=== PATIENT | female | born 1935 | race Caucasian/White ===

== ENCOUNTER 2018-03-21 14:26 | Day surgery (SDC) | payer MEDICARE, OTHER ==
[~2018-03-21] VITALS: Ht 170.2 cm; Wt 78.6 kg
[~2018-03-21 14:26] MED LIST: ACTINEL LIQUID474 ML; Dyazide 37.5-21 EACH; FISH OIL 1,0001 EAC1; ROSU10TA; SYSTANE GEL EYE10 ML
--- NOTE | 2018-03-21 16:20 | NUR ---
03/21/18 1620 Maia Arboleda AT 1600 PT WAS DC'D IN STABLE CONDITION TO CARE OF Radha SKAGGS. COPIES OF ALL INSTRUCTIONS WERE GIVEN. EYE CARE KIT GIVEN AND PT HAS F/U APPT IN AM. TOLERATED PO FLUIDS WELL BUT REFUSED A SNACK. AMBU TO CAR W/SBA X1 JOE WELL
== END 2018-03-21 16:00 | disposition home or self-care (01) ==
LOC: ORSCSDS 14:26
PROVIDERS: Ophthalmology
PROC: 08RK3JZ Replacement of Left Lens with Synthetic Substitute, Percutaneous Approach (ICD-10-PCS; principal; 2018-03-21 16:00)
DX: H25.12 Age-related nuclear cataract, left eye (principal); I10 Essential (primary) hypertension; R01.1 Cardiac murmur, unspecified; Z79.899 Other long term (current) drug therapy
CPT/HCPCS: J2001; J2250; J3010; V2632

== ENCOUNTER → 2021-02-22 | Outpatient (CLI) | payer MEDICARE, OTHER ==
[2021-02-22 10:26] LABS: Source, Urine Clean Catch
[2021-02-22 10:59] LABS: Appearance, Urine Clear (Clear); Bilirubin, Urine Neg (Neg); Blood, Urine Neg (Neg); Color, Urine Yellow (P-Yellow); Glucose Qualitative, Urine Neg (Neg); Ketones, Urine Neg (Neg); Leukocyte Esterase, Urine Neg (Neg); Nitrite, Urine Neg (Neg); Protein, Urine Neg (Neg); Specific Gravity, Urine 1.015 (1.003-1.022); Urobilinogen, Urine NORM (Normal)
== END | disposition home or self-care (01) ==
LOC: LAB SHORT 06:30
PROVIDERS: Internal Medicine
DX: N39.0 Urinary tract infection, site not specified (principal)
CPT/HCPCS: 81003

== ENCOUNTER 2021-08-21 09:37 | Inpatient (IN) | payer MEDICARE, OTHER ==
[~2021-08-21] VITALS: Ht 170.2 cm; Wt 64.7 kg
[~2021-08-21 09:37] MED LIST changes: -ROSU10TA; +ROSU10TA PO; +SYSTANE BALANCE10 ML BOTHEYES; -SYSTANE GEL EYE10 ML
[2021-08-21] MEDS ORDERED: ASPI81CH PO (10:04)
[2021-08-21] MEDS ORDERED: VITAMIN D33000 UNIT PO (10:04)
[2021-08-21] MEDS ORDERED: C COMPLEX1000 M1 PO (10:05)
[2021-08-21 10:24] LABS: BASOPHILS ABSOLUTE AUTO 0.04 K/mm3 (0.00-0.23); BASOPHILS PERCENT AUTO 1 % (0-2); EOSINOPHILS PERCENT AUTO 2 % (0-6); Hematocrit 39.4 % (33.0-51.0); Hemoglobin 12.8 g/dL (11.5-16.0); IMMATURE GRAN ABSOLUTE AUTO 0.03 K/mm3 (0.00-0.10); IMMATURE GRAN PERCENT AUTO 1 % (0-1); LYMPHOCYTES ABSOLUTE AUTO 1.05 K/mm3 (0.84-5.20); LYMPHOCYTES PERCENT AUTO 18 % (21-46); MONOCYTES ABSOLUTE AUTO 0.44 K/mm3 (0.16-1.47); MONOCYTES PERCENT AUTO 7 % (4-13); Mean Corpuscular HGB 29.1 pg (26.0-34.0); Mean Corpuscular HGB Conc 32.5 g/dL (31.5-36.5); Mean Corpuscular Volume 90 fL (80-100); Mean Platelet Volume 8.8 fL (9.1-12.4); NEUTROPHILS ABSOLUTE AUTO 4.33 K/mm3 (1.96-9.15); NEUTROPHILS PERCENT AUTO 72 % (41-73); Platelet Count 284 K/mm3 (150-400); RDW Coefficient Variation 14.5 % (11.7-14.2); RDW Standard Deviation 47.6 fL (35.1-46.3); White Blood Cell Count 5.99 K/mm3 (4.00-11.30)
[2021-08-21 10:45] LABS: Bun/Creatinine Ratio 28.6 (12.0-20.0); Calcium, Blood 9.9 mg/dL (8.5-10.1); Creatinine, Blood 1.19 mg/dL (0.40-1.00); Magnesium, Blood 2.4 mg/dL (1.6-2.4); Potassium, Blood 3.4 mmol/L (3.5-5.5); Thyroid Stimulating Hormone 1.73 uIU/mL (0.360-4.800)
[2021-08-21 13:07] LABS: International Normalized Ratio 1.02; Prothrombin Time Results 10.7 Sec (9.7-11.5)
--- NOTE | 2021-08-21 17:52 | NUR ---
SHIFT SUMMARY: PATIENT ADMIT TO PCU AT 1520. ABLE TO STAND AND TRANSFER FROM [facility] TO BED WITH ONE PERSON ASSIST. DENIES NUMBNESS/TINGLING. PERRLA, WEARING GLASSESS. BILATERAL INVESTMENT STRATEGIST STRENGTH. DENIES DIZZINESS WHEN STANDING. ON ROOM AIR SATING HIGH 90'S. TELE SHOWING SINUS RHYTHM WITH HR 60-70'S. UP TO BSC X1 WITH 2 PERSON ASSIST FOR SAFETY DUE TO RECENT GROUND LEVEL FALL AT HOME. SON AND UPDATED. DENIES ABDOMINAL PAIN/NAUSEA. VOIDING WNL. EATING DINNER AT THIS TIME. COMPLAINS OF 8-9/10 NECK PAIN, DENIES NEEDS FOR PAIN MEDICATIONS. ICE APPLIED AND PATIENT STATES IT IS FEELING MUCH BETTER. RIGHT SIDE OF FACE FOREHEAD, RIGHT EYE AND BELOW RIGHT EYE RBUISING, PURPLE/BLUE. SWELLING TO RIGHT EYE. SMALL LACERATION BELOW RIGHT EYE. SEE PICTURES IN CHART. PATIENT DENIES PAIN OTHER THAN NECK. SITTING UP RIGHT IN BED. ORIENTED TO ROOM/UNIT/CALL LIGHT. BED ALARM ON FOR SAFETY DUE TO RECENT FALL. PATIENT CALLING FOR NEEDS. VITAL SIGNS STABLE. WILL CONTINUE TO MONITOR AND REPORT OFF TO ONCOMING RN.
[2021-08-22 03:42] LABS: BASOPHILS ABSOLUTE AUTO 0.03 K/mm3 (0.00-0.23); BASOPHILS PERCENT AUTO 0 % (0-2); EOSINOPHILS ABSOLUTE AUTO 0.08 K/mm3 (0.00-0.68); EOSINOPHILS PERCENT AUTO 1 % (0-6); Hematocrit 38.1 % (33.0-51.0); Hemoglobin 12.1 g/dL (11.5-16.0); IMMATURE GRAN ABSOLUTE AUTO 0.02 K/mm3 (0.00-0.10); IMMATURE GRAN PERCENT AUTO 0 % (0-1); LYMPHOCYTES ABSOLUTE AUTO 0.97 K/mm3 (0.84-5.20); LYMPHOCYTES PERCENT AUTO 13 % (21-46); MONOCYTES PERCENT AUTO 8 % (4-13); Mean Corpuscular HGB 28.5 pg (26.0-34.0); Mean Corpuscular HGB Conc 31.8 g/dL (31.5-36.5); Mean Corpuscular Volume 90 fL (80-100); Mean Platelet Volume 8.8 fL (9.1-12.4); NEUTROPHILS ABSOLUTE AUTO 5.74 K/mm3 (1.96-9.15); NEUTROPHILS PERCENT AUTO 77 % (41-73); Platelet Count 245 K/mm3 (150-400); RDW Coefficient Variation 14.4 % (11.7-14.2); RDW Standard Deviation 47.3 fL (35.1-46.3); Red Blood Cell Count 4.25 M/mm3 (3.80-5.20); White Blood Cell Count 7.44 K/mm3 (4.00-11.30)
[2021-08-22 04:10] LABS: LDL/HDL RATIO 0.6; Magnesium, Blood 2.1 mg/dL (1.6-2.4); Very Low Density Lipoprot Chol 25 mg/dL (6-32)
[2021-08-22 04:11] LABS: Albumin, Blood 3.2 g/dL (3.4-5.0); Anion Gap 7 mmol/L (6-16); Blood Urea Nitrogen 26 mg/dL (8-24); Bun/Creatinine Ratio 29.3 (12.0-20.0); CHOL/HDL RATIO 2.1; CO2, Blood 26 mmol/L (21-32); Calcium, Blood 9.3 mg/dL (8.5-10.1); Chloride, Blood 108 mmol/L (98-108); Cholesterol 103 mg/dL (50-200); Creatinine, Blood 0.89 mg/dL (0.40-1.00); Glomerular Filtration Rate 64 (60-); Glucose, Blood 116 mg/dL (70-99); HDL Cholesterol 48 mg/dL (>39); Low Density Lipoprotein Chol 30 mg/dL (0-110); Phosphorus, Blood 2.9 mg/dL (2.5-4.9); Potassium, Blood 3.5 mmol/L (3.5-5.5); Sodium, Blood 141 mmol/L (136-145); Triglycerides 127 mg/dL (30-160)
--- NOTE | 2021-08-22 05:58 | NUR ---
SHIFT SUMMARY Assumed care of pt at 1900. SBA. Reports 9/10 pain in neck from GLF, refuses pain medication and prefers ice pack. SR 70's on telemetry. Per telecommunications field engineer, patient has brief episodes of sinus tach into 130's, then quickly falls back into 70's. Denies CP/pressure. Heparin infusing per emar. Bruising on face from the fall - see chart. VSS. No acute events this shift. Will report to dayshift RN.
--- NOTE | 2021-08-22 06:49 | NUR ---
Around 0620 patient went into SVT up into the 180's for about 10 seconds then back to the 70's. At the time the patient was sitting on the side of the bed asymptomatic.
--- NOTE | 2021-08-22 13:00 | NUR ---
Spiritual care visit conducted. Pt tells me about the events that led to her hospitalization and the plan of care moving forward. Our visit centers around pt's ability to cope with her current many stressors. We discuss family unit complications, spouse's failing health and pt's worries about her own medical issues. We then discuss her coping skills and resources. We discuss her linda and the strength that she gains from her prayers and the reading of the Bible. I normalize pt's experience, reinforce helpful attitudes and practices and provide therapeutic listening, gentle direct selling counselor and prayer. Pt responds well and shows signs of increased peace.
--- NOTE | 2021-08-22 16:47 | NUR ---
SHIFT SUMMARY: ASSUMED CARE OF PT APPROX 0700. NO ACUTE CHANGES T/OUT SHIFT. PT A&Ox4, COOPERATIVE W/CARE, USES CALL LIGHT APPROPRIATELY. PT DENIES SOB, O2 SATS MAINTAINED >93% RA. PT DENIES CHEST PAIN, NO SYNCOPAL EPISODES THIS SHIFT, DR ACHARYA CONSULTED, HEPARIN INFUSION DC'd, AMIODARONE PO ADMINISTERED PER ORDERS. PT C/O NECK PAIN, TREATED W/ICE PACKS, AND PT DOES TAKE TYLENOL x1. SWELLING AND BRUISING CONTINUES TO EYES/FACE. PT AMBULATES TO/FROM RESTROOM W/SBA. AT THIS TIME, PT RESTING QUIETLY IN BED WITH CALL LIGHT IN REACH. WILL CONTINUE TO MONITOR AND TREAT ACCORDINGLY UNTIL CHANGE OF SHIFT.
--- NOTE | 2021-08-23 06:10 | NUR ---
SHIFT SUMMARY Patient slept most of the night. SR with PAC's on tele, no MAT events. Neck pain treated with tylenol with good effect. VSS. No acute events. Will report to dayshift NIA.
--- NOTE | 2021-08-23 07:16 | NUR ---
NURSING PCU DAYSHIFT: Assumed care of pt at approx 0700. A/O, very pleasant, cooperative w/care. Skin is fragile, b/l orbital bruising R>L, scattered facial brusing r/t GLF at home. Able to reposition and xfer to BSC independently though SBA used for ambulation. C/O 7/10 neck pain/stiffness, treating w/positioning, cool packs, and tylenol as ordered. Tele in place, NSR, no c/o CP/pressure, SBP 120 prior to a.m. meds, no noted edema. L/S cta t/o, O2 sat 95% on RA, denies dyspnea, no noted cough. Abd SNT, BT+, voiding w/o difficulty per pt. PIV x2, s/l. Pt denies any current needs or questions regarding plan of care. Today is day two of amiodarone as ordered by magazine editor, no rhythm changes reported t/o NOC. Awaiting rounding from PMD and cardio, call light in reach, cont to monitor for any changes.
[2021-08-23] MEDS ORDERED: Amiodarone HCl200 MG PO ×2 (13:43→13:44)
--- NOTE | 2021-08-23 14:42 | NUR ---
NURSING PCU DISCHARGE SUMMARY: No significant changes noted t/o the a.m. Seen by PMD, discharge home d/o received. Pt verbalized understanding of all written and verbal discharge instructions. Rx's sent to [facility] per pt request. PIV's dc'd w/caths intact, pt escorted from unit via w/c accompanied by PCT @ approx 1420, no s/s of acute distress at that time.
== END 2021-08-23 14:20 | disposition home or self-care (01) | DRG 309 ==
LOC: ER 09:37 → PCU 15:44
PROVIDERS: Student in an Organized Health Care Education/Training Program; ADMIT Internal Medicine
DX: I47.1 Supraventricular tachycardia (principal); N17.9 Acute kidney failure, unspecified; E87.6 Hypokalemia; I10 Essential (primary) hypertension; M54.2 Cervicalgia; E78.5 Hyperlipidemia, unspecified; I35.0 Nonrheumatic aortic (valve) stenosis; Z79.899 Other long term (current) drug therapy; Z88.0 Allergy status to penicillin; Z79.82 Long term (current) use of aspirin; Z66 Do not resuscitate; R09.89 Other specified symptoms and signs involving the circulatory and respiratory systems; Z90.49 Acquired absence of other specified parts of digestive tract; Z90.710 Acquired absence of both cervix and uterus; R55 Syncope and collapse
CPT/HCPCS: 12011; 36415; 70450; 71045; 71260; 72125; 73100; 80048; 80061; 80069; 82947; 83735; 83880; 84100; 84443; 84484; 85025; 85379; 85520; 85610; 85730; 93005; 93010; 93880; 99285-25; A9270; J1644; J1650; J7030; J7040; Q9967

== ENCOUNTER 2021-12-12 11:25 | Emergency (ER) | payer MEDICARE, OTHER ==
[~2021-12-12] VITALS: Ht 170.2 cm; Wt 74.8 kg
[~2021-12-12 11:25] MED LIST changes: +ASPI81CH PO; +Amiodarone HCl200 MG PO; +C COMPLEX1000 M1 PO; +OMEP20ER PO; +VITAMIN D33000 UNIT PO
[2021-12-12 11:59] LABS: BASOPHILS ABSOLUTE AUTO 0.04 K/mm3 (0.00-0.23); BASOPHILS PERCENT AUTO 1 % (0-2); EOSINOPHILS ABSOLUTE AUTO 0.03 K/mm3 (0.00-0.68); EOSINOPHILS PERCENT AUTO 0 % (0-6); Hematocrit 29.9 % (33.0-51.0); Hemoglobin 9.4 g/dL (11.5-16.0); IMMATURE GRAN ABSOLUTE AUTO 0.01 K/mm3 (0.00-0.10); IMMATURE GRAN PERCENT AUTO 0 % (0-1); LYMPHOCYTES PERCENT AUTO 11 % (21-46); MONOCYTES ABSOLUTE AUTO 0.44 K/mm3 (0.16-1.47); MONOCYTES PERCENT AUTO 6 % (4-13); Mean Corpuscular HGB 26.9 pg (26.0-34.0); Mean Corpuscular HGB Conc 31.4 g/dL (31.5-36.5); Mean Corpuscular Volume 86 fL (80-100); Mean Platelet Volume 8.9 fL (9.1-12.4); NEUTROPHILS ABSOLUTE AUTO 6.08 K/mm3 (1.96-9.15); NEUTROPHILS PERCENT AUTO 82 % (41-73); Platelet Count 471 K/mm3 (150-400); RDW Coefficient Variation 14.4 % (11.7-14.2); RDW Standard Deviation 44.8 fL (35.1-46.3); Red Blood Cell Count 3.49 M/mm3 (3.80-5.20)
[2021-12-12 12:16] LABS: Albumin, Blood 3.2 g/dL (3.4-5.0); Albumin/Globulin Ratio 0.9 (0.8-1.8); Bilirubin, Total 0.3 mg/dL (0.1-1.0); Bun/Creatinine Ratio 31.4 (12.0-20.0); Calcium, Blood 9.1 mg/dL (8.5-10.1); Creatinine, Blood 1.21 mg/dL (0.40-1.00); Globulin, Blood 3.4 g/dL (2.2-4.0); Potassium, Blood 3.6 mmol/L (3.5-5.5); Total Protein, Blood 6.6 g/dL (6.4-8.2)
[2021-12-12 16:39] LABS: Source, Urine Fem Cath
[2021-12-12 16:44] LABS: Appearance, Urine Hazy (Clear); Bilirubin, Urine Neg (Neg); Blood, Urine Neg (Neg); Color, Urine Yellow (P-Yellow); Glucose Qualitative, Urine Neg (Neg); Ketones, Urine Neg (Neg); Leukocyte Esterase, Urine Neg (Neg); Nitrite, Urine Neg (Neg); Protein, Urine 1+ (Neg); Urobilinogen, Urine NORM (Normal)
[2021-12-12 17:00] LABS: Amorphous Mod (0-Heavy); Bacteria Mod /hpf; Red Blood Cells, Urine 0-2 /hpf (0-2); Renal Epithelial Rare /hpf (0-Rare); Squamous Epithelial Cells Rare /hpf (Few); White Blood Cells, Urine 0-2 /hpf (0-5)
[2021-12-12 17:34] LABS: Magnesium, Blood 2.3 mg/dL (1.6-2.4)
== END 2021-12-12 19:43 | disposition home or self-care (01) ==
LOC: ER 11:25
PROVIDERS: Emergency Medicine; Physician Assistant; Student in an Organized Health Care Education/Training Program
DX: R53.1 Weakness (principal); I10 Essential (primary) hypertension; R94.31 Abnormal electrocardiogram [ECG] [EKG]; Z79.899 Other long term (current) drug therapy; Z79.82 Long term (current) use of aspirin; Z88.0 Allergy status to penicillin
CPT/HCPCS: 80053; 81001; 83735; 83880; 84100; 84484; 85025; 86850; 86900; 86901; J7030; P9612

== ENCOUNTER 2021-12-15 11:25 | Inpatient (IN) | payer MEDICARE, OTHER ==
[~2021-12-15] VITALS: Ht 170.2 cm; Wt 57.8 kg
[2021-12-15 11:47] LABS: BASOPHILS ABSOLUTE AUTO 0.03 K/mm3 (0.00-0.23); BASOPHILS PERCENT AUTO 0 % (0-2); EOSINOPHILS ABSOLUTE AUTO 0.02 K/mm3 (0.00-0.68); EOSINOPHILS PERCENT AUTO 0 % (0-6); Hematocrit 30.4 % (33.0-51.0); Hemoglobin 9.5 g/dL (11.5-16.0); IMMATURE GRAN ABSOLUTE AUTO 0.03 K/mm3 (0.00-0.10); IMMATURE GRAN PERCENT AUTO 0 % (0-1); LYMPHOCYTES PERCENT AUTO 8 % (21-46); MONOCYTES ABSOLUTE AUTO 0.36 K/mm3 (0.16-1.47); MONOCYTES PERCENT AUTO 4 % (4-13); Mean Corpuscular HGB 26.8 pg (26.0-34.0); Mean Corpuscular HGB Conc 31.3 g/dL (31.5-36.5); Mean Corpuscular Volume 86 fL (80-100); Mean Platelet Volume 8.9 fL (9.1-12.4); NEUTROPHILS ABSOLUTE AUTO 7.26 K/mm3 (1.96-9.15); NEUTROPHILS PERCENT AUTO 86 % (41-73); Platelet Count 412 K/mm3 (150-400); RDW Coefficient Variation 14.3 % (11.7-14.2); RDW Standard Deviation 45.3 fL (35.1-46.3); Red Blood Cell Count 3.54 M/mm3 (3.80-5.20)
[2021-12-15 12:13] LABS: Albumin, Blood 3.2 g/dL (3.4-5.0); Bilirubin, Total 0.3 mg/dL (0.1-1.0); Bun/Creatinine Ratio 24.1 (12.0-20.0); Calcium, Blood 9.1 mg/dL (8.5-10.1); Creatinine, Blood 1.58 mg/dL (0.40-1.00); Globulin, Blood 3.3 g/dL (2.2-4.0); Potassium, Blood 3.3 mmol/L (3.5-5.5); Total Protein, Blood 6.5 g/dL (6.4-8.2)
[2021-12-15 17:06] LABS: Percent Saturation 5.7 % (15.0-50.0)
[2021-12-15] MEDS ORDERED: LOSA50 PO (17:38)
--- NOTE | 2021-12-15 17:48 | NUR ---
RN NOTE PT ADMITTED FROM ER AT 1605HRS. SHE WAS ABLE TO STAND TO TRANSFER, BUT FEELS WEAK, SO NEEDS 1-2 PERSON ASSISTANCE. AWAKE, ORIENTATED TO SELF, PLACE, FAMILY, DATE. POOR SHORT TERM MEMORY PER PT ADN FAMILY AT BEDSIDE. BALAJI LIVES WITH HER DAUGHTER AND DOES REQUIRE SOME HELP AT HOME. SKIN INTACT. SKIN 2ND NURSE CHECK WITH [place]EL [place] RN. EXTREMITIES COLD, WARMED WITH BLANKETS AND DRANK HOT TEA. IVF INFUSING. SHE DID GET UP TO BEDSIDE COMMODE AND VOIDED, NO INCONTINENCE. [facility]STER FAXED OVER MED LIST, BUT IT IS DIFFERENT FROM LIST IN CHART AND FAMILY/PT ARE NOT SURE TO CONFIRM THE MEDS SHE'S ON OR DOSES. DAUGHTER SAID SHE WILL BRING IN MED BOTTLES TOMORROW. DAUGHTER SAID THAT PCP SENT LIST WITH PT, NOT SEEN HERE. SCD ON. TELEMETRY ON. BED ALARM ON. BED LOW, CALL LIGHT IN REACH. CAROTID US DONE AT BEDSIDE AFTER ARRIVAL. SEIZURE PADS ON BED.
--- NOTE | 2021-12-15 17:57 | NUR ---
RN NOTE UNABLE TO CALL NEUROLOGY CONSULT NO NEUROLOGY INDUSTRIAL RELATIONS REPRESENTATIVE AVAILABLE UNTIL 12/18/21 PER CALL LIST.
--- NOTE | 2021-12-16 05:43 | NUR ---
SHIFT SUMMARY A&OX4. VSS. DENIES PAIN. PLEASANT AND COOPERATIVE WITH CARE. ASSIST X1 TO BEDSIDE COMMODE. PT ON CLEAR LIQUID DIET. NS AT 125ML/HR. SLEPT WELL THROUGHOUT THE NIGHT. SCDS ON. BED ALARM ON.
[2021-12-16 06:04] LABS: Hematocrit 25.5 % (33.0-51.0); Hemoglobin 7.7 g/dL (11.5-16.0); Mean Corpuscular HGB 26.3 pg (26.0-34.0); Mean Corpuscular HGB Conc 30.2 g/dL (31.5-36.5); Mean Corpuscular Volume 87 fL (80-100); Mean Platelet Volume 9.1 fL (9.1-12.4); Platelet Count 336 K/mm3 (150-400); RDW Coefficient Variation 14.6 % (11.7-14.2); RDW Standard Deviation 46.8 fL (35.1-46.3); Red Blood Cell Count 2.93 M/mm3 (3.80-5.20); White Blood Cell Count 4.95 K/mm3 (4.00-11.30)
[2021-12-16 06:27] LABS: Albumin, Blood 2.4 g/dL (3.4-5.0); Albumin/Globulin Ratio 0.9 (0.8-1.8); Bilirubin, Total 0.3 mg/dL (0.1-1.0); Bun/Creatinine Ratio 24.1 (12.0-20.0); Calcium, Blood 8.8 mg/dL (8.5-10.1); Creatinine, Blood 1.45 mg/dL (0.40-1.00); Globulin, Blood 2.6 g/dL (2.2-4.0); Magnesium, Blood 2.3 mg/dL (1.6-2.4); Potassium, Blood 3.7 mmol/L (3.5-5.5)
--- NOTE | 2021-12-16 11:11 | NUR ---
Spiritual Care Pt. Request pt. is awake in bed and welcomes my visit. Pts. sister is present. Pt. is unsettled about her diagnosis and prognosis and displays evidence of stress and guilt because her had to be put in memeory care. Listen empathetically with a calming presence, Establish rapport. Pt. and sister joined hands and we prayed for the Pt. and her . Pt. and sister verbalized gratitude for the spiritual care visit.
[2021-12-16] MEDS ORDERED: DYAZIDE 37.5-21 EACH PO (11:59)
[2021-12-16] MEDS ORDERED: DONE5 PO (12:00)
--- NOTE | 2021-12-16 16:42 | NUR ---
Spiritual Care Follow up Pt.is awake in bed. Family memebers are present and welcome my visit. Pt. is pleasant and displays evidence of engagement and a good sense of humor. Pt. and family verbalized gratitude for the spiritual care follow up.
--- NOTE | 2021-12-16 17:54 | NUR ---
SHIFT SUMMARY PT A&O X 3. IS FORGETFUL AT TIMES. HAD A LOW BP WITH C/O OF DIZZINESS THIS AM WHEN WORKING WITH PT, HAS HAD SOFT BP's TODAY & HR RANGES IN THE LOW TO MID 50's WITH RARE HR IN THE HIGH 40's ON TELEMETRY. MADE AWARE. HGB 7.7 THIS MORNING. NO C/O NAUSEA TODAY. TOLERATED HER CLEAR LIQ DIET. SHE DENIES PAIN. HER FAMILY BROUGHT IN COPIES OF HER POLST AND HER ADV DIRECTIVE WHICH STATES SHE's A DNR. COPIES ARE NOW ON HER CHART.
[2021-12-17 06:03] LABS: Hematocrit 26.1 % (33.0-51.0); Hemoglobin 7.9 g/dL (11.5-16.0)
[2021-12-17 06:29] LABS: Albumin, Blood 2.4 g/dL (3.4-5.0); Anion Gap 6 mmol/L (6-16); Blood Urea Nitrogen 23 mg/dL (8-24); Bun/Creatinine Ratio 19.7 (12.0-20.0); CO2, Blood 26 mmol/L (21-32); Calcium, Blood 8.5 mg/dL (8.5-10.1); Chloride, Blood 112 mmol/L (98-108); Creatinine, Blood 1.17 mg/dL (0.40-1.00); Glomerular Filtration Rate 46 (60-); Glucose, Blood 94 mg/dL (70-99); Phosphorus, Blood 2.6 mg/dL (2.5-4.9); Potassium, Blood 3.5 mmol/L (3.5-5.5); Sodium, Blood 144 mmol/L (136-145)
--- NOTE | 2021-12-17 06:33 | NUR ---
SHIFT SUMMARY ALERT AND ORIENT X 3-4. SOFT BPs. PT FEELING TIRED. RECEIVED IV IRON PER MD ORDER. DENIES PAIN. SLEPT MOST OF THE NIGHT BETWEEN CARE. HGB THIS AM WAS 7.9.
--- NOTE | 2021-12-17 18:41 | NUR ---
SHIFT SUMMARY: PT A/O X 4, STANDBY ASSIST TO BSC. PLEASANT AND COOPERATIVE. PT TOLERATED PO INTAKE THROUGHOUT THE DAY WITHOUT SYMPTOMS OF N/V. NO PAIN REPORTED. PT IV INFILTRATED AT SHIFT END AND WAS UNABLE TO FINISH IV IRON INFUSION. ATTEMPTED TO RESTART NEW IV BUT UNSUCCESSFUL. WILL NOTIFY PATRIA KRAMER. NO OTHER CHANGES OR CONCERNS REPORTED BY PT.
--- NOTE | 2021-12-18 05:30 | NUR ---
SHIFT SUMMARY ALERT AND ORIENTED. VSS. NEW 22GA IV PLACED TO RIGHT HAND, TOLERATED WELL. CONTINUED INFUSION OF IRON THROUH IV. ABLE TO MAKE NEEDS KNOWN. DENIES PAIN. ASIST X 1 TO BEDSIDE COMMODE. BED ALARM ON.
[2021-12-18 08:40] LABS: Hematocrit 27.1 % (33.0-51.0); Hemoglobin 8.4 g/dL (11.5-16.0)
[2021-12-18 08:59] LABS: Albumin, Blood 2.5 g/dL (3.4-5.0); Anion Gap 6 mmol/L (6-16); Blood Urea Nitrogen 23 mg/dL (8-24); Bun/Creatinine Ratio 20.7 (12.0-20.0); CO2, Blood 26 mmol/L (21-32); Calcium, Blood 8.8 mg/dL (8.5-10.1); Chloride, Blood 111 mmol/L (98-108); Creatinine, Blood 1.11 mg/dL (0.40-1.00); Glomerular Filtration Rate 49 (60-); Glucose, Blood 90 mg/dL (70-99); Phosphorus, Blood 2.4 mg/dL (2.5-4.9); Potassium, Blood 3.3 mmol/L (3.5-5.5); Sodium, Blood 143 mmol/L (136-145)
--- NOTE | 2021-12-18 18:56 | NUR ---
END OF SHIFT SUMMARY: PATIENT DENIED PAIN OR DISCOMFORT THROUGHOUT THE SHIFT. NO SEIZURE ACTIVITY NOTED. NO SPECIAL EFFECTS TECHNICIAN TO PERFORM EEG AT BEDSIDE TODAY. PATIENT UP TO CHAIR, UP IN HER ROOM AND UP TO THE SHOWER. PATIENT DENIED DIZZINESS OR SHORTNESS OF BREATH. NO CHANGES TO HEART RHYTHM DURING ACTIVITY. PATIENT IS STEADY ON HER FEET AND ABLE TO PERFORM ADLS WITH MIN ASSIST. PATIENT'S DAUGHTER IN TO VISIT. PATIENT REPORTS THAT HER DAUGHTER LIVES LOCALLY.
[2021-12-19 05:32] LABS: Hematocrit 24.7 % (33.0-51.0); Hemoglobin 7.7 g/dL (11.5-16.0); Mean Corpuscular HGB 26.6 pg (26.0-34.0); Mean Corpuscular HGB Conc 31.2 g/dL (31.5-36.5); Mean Corpuscular Volume 86 fL (80-100); Mean Platelet Volume 8.9 fL (9.1-12.4); Platelet Count 305 K/mm3 (150-400); RDW Coefficient Variation 14.6 % (11.7-14.2); RDW Standard Deviation 45.5 fL (35.1-46.3); Red Blood Cell Count 2.89 M/mm3 (3.80-5.20); White Blood Cell Count 6.03 K/mm3 (4.00-11.30)
[2021-12-19 06:01] LABS: Albumin, Blood 2.3 g/dL (3.4-5.0); Anion Gap 6 mmol/L (6-16); Blood Urea Nitrogen 18 mg/dL (8-24); Bun/Creatinine Ratio 18.3 (12.0-20.0); CO2, Blood 27 mmol/L (21-32); Calcium, Blood 8.4 mg/dL (8.5-10.1); Chloride, Blood 111 mmol/L (98-108); Creatinine, Blood 0.98 mg/dL (0.40-1.00); Glomerular Filtration Rate 57 (60-); Glucose, Blood 97 mg/dL (70-99); Phosphorus, Blood 2.6 mg/dL (2.5-4.9); Potassium, Blood 3.3 mmol/L (3.5-5.5); Sodium, Blood 144 mmol/L (136-145)
--- NOTE | 2021-12-19 07:49 | NUR ---
JENNY PT TO HAVE EEG TODAY THEN POSSIBLE DISCHARGE HOME WITH DAUGHTER. NO APPEARANCE OF ANY SEIZURE LIKE ACTIVITY TONIGHT.
[2021-12-19] MEDS ORDERED: ASCO500 PO (14:00)
[2021-12-19] MEDS ORDERED: DOCU100 PO (14:01)
[2021-12-19] MEDS ORDERED: FERSU300 PO (14:02)
[2021-12-19] MEDS ORDERED: MIRALAX17 GM PO (14:03)
[2021-12-19] MEDS ORDERED: PANT40 PO (14:03)
--- NOTE | 2021-12-19 18:14 | NUR ---
SHIFT SUMMARY A/OX3, FORGETFUL AT TIMES. 1P ASSIST WITH FWW AND GB. DENIES PAIN OR SOB. REDNESS/SWELLING NOTED TO PREVIOUS R.AC IV SITE. EEG COMPLETED TODAY, RESULTS PENDING. POSS D/C TOMORROW. VSS, NO ACUTE CHANGES AT THIS TIME. BED IN LOWEST POSITION WITH CALL LIGHT IN REACH. WILL CONTINUE TO MONITOR AND REPORT TO ONCOMING RN.
--- NOTE | 2021-12-20 04:16 | NUR ---
SHIFT SUMMARY NO OVERNIGHT EVENTS. DENIES ANY SOB/PAIN, S/S OF DISTRESS. PT AMBULATING TO BATHROOM INDEPENDENTLY. ABLE TO USE CALL LIGHT. WILL CONTINUE TO MONITOR.
== END 2021-12-20 13:22 | disposition home health service (06) | DRG 682 ==
LOC: ER 11:25 → ERHOLD 14:42 → MEDS 14:42
PROVIDERS: Emergency Medicine; Internal Medicine; ADMIT Internal Medicine
DX: N17.9 Acute kidney failure, unspecified (principal); E43 Unspecified severe protein-calorie malnutrition; E87.1 Hypo-osmolality and hyponatremia; E86.0 Dehydration; D50.9 Iron deficiency anemia, unspecified; I35.0 Nonrheumatic aortic (valve) stenosis; Z66 Do not resuscitate; E87.6 Hypokalemia; E83.39 Other disorders of phosphorus metabolism; R94.31 Abnormal electrocardiogram [ECG] [EKG]; I95.1 Orthostatic hypotension; F03.90 Unspecified dementia, unspecified severity, without behavioral disturbance, psychotic disturbance, mood disturbance, and anxiety; I48.0 Paroxysmal atrial fibrillation; E78.5 Hyperlipidemia, unspecified; I10 Essential (primary) hypertension; E86.9 Volume depletion, unspecified; D51.9 Vitamin B12 deficiency anemia, unspecified; Z88.0 Allergy status to penicillin; Z79.899 Other long term (current) drug therapy; Z79.82 Long term (current) use of aspirin; Z86.79 Personal history of other diseases of the circulatory system; Z87.820 Personal history of traumatic brain injury; Z90.49 Acquired absence of other specified parts of digestive tract; Z90.710 Acquired absence of both cervix and uterus; Z98.890 Other specified postprocedural states; Z68.25 Body mass index [BMI] 25.0-25.9, adult
CPT/HCPCS: 36415; 70450; 74176; 80053; 80069; 82728; 83540; 83550; 83690; 83735; 85014; 85018; 85025; 85027; 93005; 93010; 93880; 95819; 96372; 97116; 97162; 97530; 99285-25; A9270; C9113; J2916; J3420; J3480; J7030; J7060

== ENCOUNTER 2022-01-06 12:06 | Day surgery (SDC) | payer MEDICARE, OTHER ==
[~2022-01-06] VITALS: Ht 172.7 cm; Wt 59.6 kg
[~2022-01-06 12:06] MED LIST changes: +ASCO500 PO; +DOCU100 PO; +DONE5 PO; +DYAZIDE 37.5-21 EACH PO; +FERSU300 PO; +LOSA50 PO; +MIRALAX17 GM PO; +PANT40 PO
[2022-01-06] MEDS ORDERED: Amiodarone HCl200 MG (13:19)
== END 2022-01-06 16:59 | disposition home or self-care (01) ==
LOC: ORSCSDS 12:06
PROVIDERS: Internal Medicine Gastroenterology
PROC: 0DBH8ZX Excision of Cecum, Via Natural or Artificial Opening Endoscopic, Diagnostic (ICD-10-PCS; principal; 2022-01-06 13:30)
PROC: 0W3P8ZZ Control Bleeding in Gastrointestinal Tract, Via Natural or Artificial Opening Endoscopic (ICD-10-PCS; principal; 2022-01-06 13:30)
PROC: 0DB78ZX Excision of Stomach, Pylorus, Via Natural or Artificial Opening Endoscopic, Diagnostic (ICD-10-PCS; principal; 2022-01-06 13:30)
PROC: 3E0H8GC Introduction of Other Therapeutic Substance into Lower GI, Via Natural or Artificial Opening Endoscopic (ICD-10-PCS; principal; 2022-01-06 13:30)
PROC: 0DBK8ZX Excision of Ascending Colon, Via Natural or Artificial Opening Endoscopic, Diagnostic (ICD-10-PCS; principal; 2022-01-06 13:30)
PROC: 0DBL8ZX Excision of Transverse Colon, Via Natural or Artificial Opening Endoscopic, Diagnostic (ICD-10-PCS; principal; 2022-01-06 13:30)
DX: D50.9 Iron deficiency anemia, unspecified (principal); K31.7 Polyp of stomach and duodenum; D12.0 Benign neoplasm of cecum; D12.2 Benign neoplasm of ascending colon; D12.3 Benign neoplasm of transverse colon; K22.89 Other specified disease of esophagus; K63.3 Ulcer of intestine; K31.819 Angiodysplasia of stomach and duodenum without bleeding; K57.30 Diverticulosis of large intestine without perforation or abscess without bleeding; K64.4 Residual hemorrhoidal skin tags; I10 Essential (primary) hypertension; I47.1 Supraventricular tachycardia; E78.5 Hyperlipidemia, unspecified; Z79.899 Other long term (current) drug therapy
CPT/HCPCS: 88305; 88342; A9270; J0330; J0461; J2405; J2704; J7120; Q9968

== ENCOUNTER 2022-02-02 10:36 | Emergency (ER) | payer MEDICARE, OTHER ==
[~2022-02-02] VITALS: Ht 170.2 cm; Wt 56.7 kg
[~2022-02-02 10:36] MED LIST changes: +Amiodarone HCl200 MG
[2022-02-02 11:58] LABS: BASOPHILS ABSOLUTE AUTO 0.01 K/mm3 (0.00-0.23); BASOPHILS PERCENT AUTO 0 % (0-2); EOSINOPHILS ABSOLUTE AUTO 0.01 K/mm3 (0.00-0.68); EOSINOPHILS PERCENT AUTO 0 % (0-6); Hematocrit 34.8 % (33.0-51.0); Hemoglobin 10.6 g/dL (11.5-16.0); IMMATURE GRAN ABSOLUTE AUTO 0.02 K/mm3 (0.00-0.10); IMMATURE GRAN PERCENT AUTO 0 % (0-1); LYMPHOCYTES ABSOLUTE AUTO 0.83 K/mm3 (0.84-5.20); LYMPHOCYTES PERCENT AUTO 15 % (21-46); MONOCYTES ABSOLUTE AUTO 0.21 K/mm3 (0.16-1.47); MONOCYTES PERCENT AUTO 4 % (4-13); Mean Corpuscular HGB 26.5 pg (26.0-34.0); Mean Corpuscular HGB Conc 30.5 g/dL (31.5-36.5); Mean Corpuscular Volume 87 fL (80-100); Mean Platelet Volume 8.7 fL (9.1-12.4); NEUTROPHILS ABSOLUTE AUTO 4.65 K/mm3 (1.96-9.15); NEUTROPHILS PERCENT AUTO 81 % (41-73); Platelet Count 351 K/mm3 (150-400); RDW Coefficient Variation 18.8 % (11.7-14.2); RDW Standard Deviation 60.1 fL (35.1-46.3); White Blood Cell Count 5.73 K/mm3 (4.00-11.30)
[2022-02-02 12:16] LABS: Albumin, Blood 2.7 g/dL (3.4-5.0); Albumin/Globulin Ratio 0.7 (0.8-1.8); Bilirubin, Total 0.3 mg/dL (0.1-1.0); Bun/Creatinine Ratio 24.9 (12.0-20.0); Calcium, Blood 9.1 mg/dL (8.5-10.1); Creatinine, Blood 0.97 mg/dL (0.40-1.00); Globulin, Blood 3.7 g/dL (2.2-4.0); Potassium, Blood 3.6 mmol/L (3.5-5.5); Total Protein, Blood 6.4 g/dL (6.4-8.2)
[2022-02-02 15:15] LABS: Influenza B, PCR NEGATIVE (NEGATIVE); Resp Syncytial Virus, PCR NEGATIVE (NEGATIVE); SARS-Cov-2 (COVID-19) PCR, MMC NEGATIVE (NEGATIVE)
[2022-02-02 15:25] LABS: Influenza A, PCR POSITIVE (NEGATIVE)
[2022-02-02 15:47] LABS: Source, Urine Clean Catch
[2022-02-02 15:49] LABS: Appearance, Urine Cloudy (Clear); Bilirubin, Urine Neg (Neg); Blood, Urine 1+ (Neg); Color, Urine Yellow (P-Yellow); Glucose Qualitative, Urine Neg (Neg); Ketones, Urine 3+ (Neg); Leukocyte Esterase, Urine 1+ (Neg); Nitrite, Urine Neg (Neg); Protein, Urine 2+ (Neg); Urobilinogen, Urine 1+ (Normal)
[2022-02-02 15:57] LABS: Bacteria Many /hpf; Squamous Epithelial Cells Few /hpf (Few)
[2022-02-02] MEDS ORDERED: CEPH500 PO (18:41)
== END 2022-02-02 19:09 | disposition home or self-care (01) ==
LOC: ER 10:36
PROVIDERS: Physician Assistant
DX: N39.0 Urinary tract infection, site not specified (principal); J10.1 Influenza due to other identified influenza virus with other respiratory manifestations; E86.0 Dehydration; I95.9 Hypotension, unspecified; Z79.82 Long term (current) use of aspirin; Z79.899 Other long term (current) drug therapy; Z20.822 Contact with and (suspected) exposure to COVID-19
CPT/HCPCS: 0241U; 36415; 71046; 80053; 81001; 83605; 85025; 87040; 87086; 96374; 99285-25; J0696; J7030